=== PATIENT | male | born 2005 | race Asian ===

== ENCOUNTER 2024-04-29 22:46 | Emergency (ER) | payer OTHER ==
[~2024-04-29] VITALS: Ht 175.3 cm; Wt 70.5 kg
[2024-04-29 22:57] VITALS: TEMP 98
[2024-04-30 01:11] LABS: BASOPHILS % (AUTO) 0.1 % (0.0-2.0); EOSINOPHILS % (AUTO) 0 % (1.0-6.0); HEMATOCRIT 44.2 % (41-53); HEMOGLOBIN 14.2 g/dL (13.5-17.5); LYMPHOCYTES # (AUTO) 0.7 K/uL (1.0-4.8); LYMPHOCYTES % (AUTO) 5.2 % (22.0-44.0); MEAN CORPUSCULAR HEMOGLOBIN 26.4 pg (26.0-34.0); MEAN CORPUSCULAR VOLUME 83 fL (80-100); MONOCYTES # (AUTO) 0.8 K/uL (0.1-1.0); MONOCYTES % (AUTO) 5.9 % (2.0-9.0); NEUTROPHILS # (AUTO) 12.3 K/uL (1.8-7.7); PLATELET COUNT (AUTO) 370 K/uL (150-450); RED BLOOD CELL COUNT(AUTO) 5.36 MIL/uL (4.50-5.90); RED CELL DISTRIBUTION WIDTH 14.4 % (11.5-14.5); WHITE BLOOD COUNT (AUTO) 13.8 K/uL (4.5-11.0)
[2024-04-30 01:18] LABS: NEUTROPHILS % (AUTO) 88.8 % (40.0-70.0)
[2024-04-30 01:24] LABS: ANION GAP 10 mmol/L (8-16); CALCIUM, TOTAL 9.7 mg/dL (8.8-10.5); CARBON DIOXIDE 29 mmol/L (22-29); CHLORIDE 98 mmol/L (98-107); CREATININE 1.03 mg/dL (0.60-1.30); GLOMERULAR FILTR. RATE CALC > 60 mL/min (>60); GLUCOSE,RANDOM 137 mg/dL (70-110); LIPASE 16 U/L (16-77); POTASSIUM 4.3 mmol/L (3.5-5.1); SODIUM SERUM 137 mmol/L (136-145); UREA NITROGEN, BLOOD 16 mg/dL (7-18)
[2024-04-30 02:28] LABS: APPEARANCE,URINE CLEAR (CLEAR); BILIRUBIN,URINE NEGATIVE (NEGATIVE); COLOR,URINE LIGHT YELLOW (YELLOW); GLUCOSE, URINE (UA) NEGATIVE (NEGATIVE); KETONES,URINE =>150 mg/dL (NEGATIVE); LEUKOCYTE ESTERASE ,URINE NEGATIVE (NEGATIVE); NITRATE,URINE NEGATIVE (NEGATIVE); OCCULT BLOOD,URINE NEGATIVE (NEGATIVE); PH,URINE 6.5 (5.0-8.0); PROTEIN,URINE 30-70 mg/dL (NEGATIVE); SPECIFIC GRAVITIY, URINE 1.031 (1.003-1.030); UROBILINOGEN,URINE <=1.0 mg/dL (<=1.0)
[2024-04-30] MEDS: SODIUM CHLORIDE 0.9% 1,000 ML IV ONE (02:43)
[2024-04-30 02:44] LABS: BACTERIA,URINE None Seen /HPF (None Seen); RBC,URINE None Seen /HPF (0-2); SQUAMOUS EPITHELIAL CELL,UR Few /LPF (None Seen); WBC,URINE None Seen /HPF (0-5)
[2024-04-30] MEDS: METOCLOPRAMIDE HCL 5 MG/ML 2 ML VIAL IVP ONE (02:44)
[2024-04-30] MEDS: MORPHINE SULFATE 2 MG/ML SYRINGE IVP ONE (03:03)
[2024-04-30] MEDS: CefTRIAXone 1 GM/DEXTROSE 50 ML IV ONE (05:52)
[2024-04-30 06:17] VITALS: BP 122/85; PULSE 79; RESP 18; O2SAT 99
== END 2024-04-30 06:18 | disposition home or self-care (01) ==
LOC: EMS 22:46
DX: N20.0 Calculus of kidney (principal); R10.31 Right lower quadrant pain
CPT/HCPCS: 99285; 80048; 81001; 83690; 85025; 36415; 74177; 96365; 96375; 96361; 93005; J0696; J2765; J2270; J7030